=== PATIENT | female | born 1950 | race Caucasian/White ===

== ENCOUNTER 2024-09-20 05:28 | Day surgery (SDC) | payer MEDICARE ==
[2024-09-13 13:41] LABS: BASOPHILS # (AUTO) 0.1 X10'3 (0-0.2); BASOPHILS % (AUTO) 0.9 % (0-1); EOSINOPHILS # (AUTO) 0.2 X10'3 (0-0.9); EOSINOPHILS % (AUTO) 2.4 % (0-6); LYMPHOCYTES # (AUTO) 2.1 X10'3 (1.1-4.8); LYMPHOCYTES % (AUTO) 28.7 % (21-51); MEAN CORPUSCULAR HEMOGLOBIN 25.9 PG (27.0-31.0); MEAN CORPUSCULAR HGB CONC 33.2 g/dL (33.0-36.5); MEAN PLATELET VOLUME 8.1 FL (7.4-10.4); MONOCYTES # (AUTO) 0.7 X10'3 (0-0.9); MONOCYTES % (AUTO) 10.3 % (2-12); NEUTROPHILS # (AUTO) 4.2 X10'3 (1.8-7.7); NEUTROPHILS % (AUTO) 57.7 % (42-75); PRE OP HEMATOCRIT 35.9 % (35.0-45.0); PRE OP HEMOGLOBIN 11.9 g/dL (12.0-16.0); PRE OP PLATELET COUNT 314 X10'3 (140-440); PRE OP WHITE BLOOD COUNT 7.3 10'3 (4.8-10.8); RED CELL DISTRIBUTION WIDTH 15.6 % (11.5-14.5)
[2024-09-13 13:53] LABS: ALBUMIN 3.8 G/DL (3.4-5.0); ALBUMIN/GLOBULIN RATIO 1.1 (1.1-1.5); ALKALINE PHOSPHATASE 92 IU/L (46-116); BLOOD UREA NITROGEN 12 MG/DL (7-18); BUN/CREATININE RATIO 16.9 (10.0-20.0); CALCIUM 9.4 MG/DL (8.5-10.1); CHLORIDE 103 MMOL/L (99-107); CREATININE 0.71 MG/DL (0.40-0.90); PRE OP ALT 18 U/L (30-65); PRE OP ANION GAP 10 (8-16); PRE OP AST 15 U/L (10-37); PRE OP BILIRUB, TOTAL 0.4 MG/DL (0.0-1.0); PRE OP GLUCOSE 186 MG/DL (70-104); PRE OP POTASSIUM 4.5 MMOL/L (3.4-5.1); PRE OP SODIUM 138 MMOL/L (135-145); TOTAL CARBON DIOXIDE 25.1 MMOL/L (24-32); TOTAL PROTEIN 7.4 G/DL (6.4-8.2); eGFR 81 ML/MIN
[~2024-09-20] VITALS: Ht 177.8 cm; Wt 81.5 kg
[2024-09-20] VITALS (8 sets, daily range): BP systolic 146–174; BP diastolic 72–90; PULSE 52–60; RESP 11–16; TEMP 97.5; O2SAT 95–98
[~2024-09-20 05:28] MED LIST: ACET-812 PO; ALEN70TA80 PO; ASPI81TA52 PO; CEPH250T PO; CHOL2000 PO; LEVO125T69 PO; LEVO125T8 PO; MELO-100 PO; METF-1157 PO; METF-900 PO; OMEP20CA15 PO; OMEP20CA16 PO; OXYB10TA30 PO; OXYC-145 PO; PRAV40TA3 PO; ROSU10TA72 PO; SITA100T11 PO
[2024-09-20] MEDS: famotidine 20mg tablet PO ONE (06:05)
[2024-09-20] MEDS: ringers solution, lacted 1,000 ML IV SCH (06:06)
[2024-09-20] MEDS: ceFAZolin 2gm in dextrose, iso 50 ML IV ONE (06:06)
[2024-09-20] MEDS ORDERED: LIDOcaine 2% (20mg/ml) 5ml vial ONE (06:45)
[2024-09-20] MEDS ORDERED: BUPIVAcaine/PF 2.5mg/ml (0.25%) 10ml vial ONE (06:46)
[2024-09-20] MEDS ORDERED: LIDOcaine 1% 30ml preserv. free vial ONE (08:05)
[2024-09-20] MEDS ORDERED: fentaNYL/PF 50MCG/1 ML 2ML syringe ONE (08:06)
[2024-09-20] MEDS ORDERED: MIDAZolam 1 MG/ML 5ML VIAL ONE (08:06)
[2024-09-20] MEDS ORDERED: 0.9 % SODIUM CHLORIDE 10 ML VIAL ONE (08:11)
[2024-09-20] MEDS ORDERED: ketorolac trometh 30MG/ML vial 30 MG/ML VIAL ONE (08:12)
[2024-09-20] MEDS ORDERED: morphine 2 MG/ML inj. syringe IV PRN (08:35)
[2024-09-20] MEDS ORDERED: morphine 4 MG/ML inj SYRINge IV PRN (08:35)
[2024-09-20] MEDS ORDERED: ondansetron/PF 4mg/2ml inj IV PRN (08:35)
[2024-09-20] MEDS ORDERED: meperidine/PF 25mg/ml syringe IV PRN ×3 (08:35)
[2024-09-20] MEDS ORDERED: labetalol 20mg/4ml (5mg/ml) syringe IV PRN (08:35)
[2024-09-20] MEDS ORDERED: proCHLORperazine 10 MG/2 ml inj IV PRN (08:35)
[2024-09-20] MEDS ORDERED: ringers solution, lacted 1,000 ML IV SCH (08:35)
[2024-09-20] MEDS ORDERED: acetaminophen 1,000mg/100ml IV 100 ML IV ONE (08:37)
[2024-09-20] MEDS: enalaprilat 1.25mg/ml 2ml vial IV PRN (08:56)
== END 2024-09-20 09:35 | disposition home or self-care (01) ==
LOC: PAS 05:28
PROVIDERS: ATTEND Orthopaedic Surgery Hand Surgery
DX: M18.12 Unilateral primary osteoarthritis of first carpometacarpal joint, left hand (principal); M65.352 Trigger finger, left little finger; M47.816 Spondylosis without myelopathy or radiculopathy, lumbar region; Z79.899 Other long term (current) drug therapy; Z88.8 Allergy status to other drugs, medicaments and biological substances; E11.9 Type 2 diabetes mellitus without complications; G43.909 Migraine, unspecified, not intractable, without status migrainosus; M35.3 Polymyalgia rheumatica; Z87.891 Personal history of nicotine dependence; Z90.710 Acquired absence of both cervix and uterus
CPT/HCPCS: 25312; 25447; 26055; 36415; 80053; 82948; 85025; 93005; A4215; A4618; A6449; A7000; J0131; J0690; J1885; J2003; J2250; J3010; J3490; J7030; J7120; Z7506; Z7512; Z7610